=== PATIENT | male | born 1955 | race Caucasian/White ===

== ENCOUNTER 2020-01-24 17:43 | Emergency (ER) | payer BC ==
[2020-01-24] MEDS ORDERED: Lidocaine 1% w/Epinephrine 1:100K 20 ML VIAL ONE (18:09)
[2020-01-24] MEDS ORDERED: Boostrix 0.5 ML (Tdap) VIAL ONE (18:20)
--- NOTE | 2020-01-24 18:35 | RAD ---
XR Hand Lt 3 View STANDARD History: Metacarpal pain Comparison: None. Findings: Mild swelling along the medial aspect of the hand. No acute displaced fracture or malalignm ent. Impression: No acute fracture or malalignment. Soft tissue swelling.
[2020-01-24] MEDS ORDERED: Sterile Water Irrigation 1,000 ML BOT ONE (19:43)
== END 2020-01-24 19:36 | disposition home or self-care (01) ==
LOC: MADERS 17:43
DX: S61.412A Laceration without foreign body of left hand, initial encounter (principal); J45.909 Unspecified asthma, uncomplicated; Z79.51 Long term (current) use of inhaled steroids; W23.0XXA Caught, crushed, jammed, or pinched between moving objects, initial encounter; Y93.52 Activity, horseback riding
CPT/HCPCS: 12044; 90471; 90715